=== PATIENT | male | born 1950 | race Caucasian/White ===

== ENCOUNTER 2025-01-20 15:43 | Inpatient (IN) | payer MEDICARE, OTHER ==
[~2025-01-20] VITALS: Ht 180.3 cm; Wt 78.0 kg
[~2025-01-20 15:43] MED LIST: AMLO5TAB16 PO; CARV25TA2 PO; ERGO500056 PO; PRAV80TA3 PO; ZOLP-679 PO
[2025-01-20 16:11] LABS: BASOPHILS % (AUTO) 1.3 % (0-1); EOSINOPHILS # (AUTO) 0.2 X10'3 (0-0.9); EOSINOPHILS % (AUTO) 5.9 % (0-6); LYMPHOCYTES # (AUTO) 0.9 X10'3 (1.1-4.8); LYMPHOCYTES % (AUTO) 25.7 % (21-51); MEAN CORPUSCULAR HEMOGLOBIN 28.6 PG (27.0-31.0); MEAN CORPUSCULAR HGB CONC 33.2 g/dL (33.0-36.5); MEAN CORPUSCULAR VOLUME 86.1 FL (78-98); MEAN PLATELET VOLUME 6.3 FL (7.4-10.4); MONOCYTES # (AUTO) 0.3 X10'3 (0-0.9); MONOCYTES % (AUTO) 9.5 % (2-12); NEUTROPHILS % (AUTO) 57.6 % (42-75); PLATELET COUNT 244 X10'3 (140-440); RED BLOOD COUNT 2.07 X10'6 (4.70-6.10); RED CELL DISTRIBUTION WIDTH 22.5 % (11.5-14.5); WHITE BLOOD COUNT 3.5 X10'3 (4.5-11.0)
[2025-01-20 16:14] LABS: HEMOGLOBIN 5.9 g/dl (14.0-17.9)
[2025-01-20 16:15] LABS: HEMATOCRIT 17.8 % (42.0-52.0)
[2025-01-20 16:21] LABS: APTT 27 SECONDS (22-32); INR 1.1 INR
[2025-01-20 16:22] LABS: ALBUMIN 2.6 G/DL (3.4-5.0); ALBUMIN/GLOBULIN RATIO 0.7 (1.1-1.5); ANION GAP 5 (8-16); ASPARTATE AMINO TRANSFERASE 9 U/L (10-37); BILIRUBIN,TOTAL 0.4 MG/DL (0.1-1.0); BLOOD UREA NITROGEN 37 MG/DL (7-18); BUN/CREATININE RATIO 8.3 (10.0-20.0); CALCIUM 7.9 MG/DL (8.5-10.1); CHLORIDE 98 MMOL/L (99-107); CREATININE 4.46 MG/DL (0.60-1.10); GLUCOSE 146 MG/DL (70-104); POTASSIUM 4.1 MMOL/L (3.5-5.1); SODIUM 139 MMOL/L (135-145); TOTAL CARBON DIOXIDE 36.3 MMOL/L (24-32); TOTAL PROTEIN 6.4 G/DL (6.4-8.2); eCRCL 15 ML/MIN; eGFR 13 ML/MIN
[2025-01-20 16:23] LABS: ALANINE AMINOTRANSFERASE 11 U/L (12-78); ALKALINE PHOSPHATASE 67 IU/L (46-116)
[2025-01-20 16:30] LABS: PRO BRAIN NATRIURETIC PEPTIDE 10433 PG/ML (0-125)
[2025-01-20 16:32] LABS: PROTHROMBIN TIME 11.1 SECONDS (9.0-12.0)
[2025-01-20 16:46] LABS: ANISOCYTOSIS 3+; PLATELET ESTIMATE NORMAL; TOTAL CELLS COUNTED 100
[2025-01-20 16:47] LABS: ELLIPTOCYTES FEW; STOMATOCYTES 1+; TEAR DROP CELLS FEW
[2025-01-20] MEDS ORDERED: magnesium Cl slow-release 64mg tablet PO PRN (16:50)
[2025-01-20] MEDS ORDERED: potassium Cl 20 mEq SR tablet PO PRN ×2 (16:50)
[2025-01-20] MEDS ORDERED: magnesium hydroxide 30ml (MOM) UD suspension PO PRN (16:50)
[2025-01-20] MEDS ORDERED: magnesium sulf-water 4G/100mL 100 ML IV PRN (16:50)
[2025-01-20] MEDS ORDERED: pantoprazole 40mg IV 80 MG in normal saline 100ml IV soln 100 ML IV ONE (16:50)
[2025-01-20] MEDS ORDERED: magnesium sulf-water 2g/50mL 50 ML IV PRN (16:50)
[2025-01-20] MEDS ORDERED: acetaminophen 325mg tablet PO PRN (16:50)
[2025-01-20] MEDS ORDERED: potassium Cl 40MEQ/1/2NS 520ml 520 ML IV PRN (16:50)
[2025-01-20] MEDS ORDERED: mag hydrox/Alum hydrox/simeth 30ml oral suspension PO PRN (16:50)
[2025-01-20] MEDS ORDERED: ondansetron/PF 4mg/2ml inj IV PRN (16:50)
[2025-01-20 17:27] LABS: HEMOGLOBIN A1C 4.4 % (4.5-6.2)
[2025-01-20] MEDS: pantoprazole 40 MG vial IV ONE (18:53)
[2025-01-20] MEDS: furosemide 10 MG/1 ML 10ml inj IV ONE (18:54)
[2025-01-20] MEDS: docusate sod 100mg capsule PO SCH (20:00)
[2025-01-20] MEDS ORDERED: heparin, porcine 5000 units/ml vial SQ SCH (20:00)
[2025-01-20] MEDS: K and/or MAG REPLACEMENT MC SCH (20:00)
[2025-01-20 20:25] LABS: BILIRUBIN,URINE NEGATIVE (Neg); CLARITY,URINE CLOUDY (Clear); COLOR,URINE YELLOW (Yellow); GLUCOSE, URINE 250 mg/dl (Neg); KETONES,URINE NEGATIVE (Neg); LEUKOCYTE ESTERASE ,URINE NEGATIVE (Neg); NITRITES, URINE NEGATIVE (Neg); OCCULT BLOOD,URINE NEGATIVE (Neg); PH,URINE 8.5 (4.8-8.0); PROTEIN,URINE 100 mg/dl (Neg); UROBILINOGEN,URINE 0.2 E.U/dL (0.2-1.0)
[2025-01-20] MEDS: PEG 3350/Na sulf,bicarb,Cl/KCl oral sol 4 liter bottle PO ONE (20:30)
[2025-01-20 20:35] LABS: UA COLLECTION TYPE URINAL
[2025-01-20 20:37] LABS: RBC,URINE NONE SEEN /HPF (0-2)
[2025-01-20 20:38] LABS: AMORPHOUS PHOSPHATES 1+; BACTERIA,URINE 1+ /HPF (Neg); SQUAMOUS EPITHELIAL CELL,UR FEW /LPF (FEW)
[2025-01-20] MEDS: furosemide 40mg/4ml inj IV ONE (20:44)
[2025-01-20] MEDS ORDERED: pantoprazole 40MG/NS 100ML BAG 100 ML IV SCH (21:00)
[2025-01-20 21:24] VITALS: BP 144/66; PULSE 72; RESP 15; TEMP 96.6; O2SAT 99
[2025-01-20 22:45] VITALS: BP 134/56; PULSE 67; RESP 16; TEMP 98.2; O2SAT 98
[2025-01-20] MEDS: carVEDilol 12.5mg tablet PO SCH (22:51)
[2025-01-21] VITALS (10 sets, daily range): BP systolic 112–172; BP diastolic 48–77; PULSE 57–72; RESP 12–16; TEMP 97.3–97.7; O2SAT 96–100
[2025-01-21 00:04] LABS: HEMATOCRIT 23.5 % (42.0-52.0); HEMOGLOBIN 8.2 g/dl (14.0-17.9); MEAN CORPUSCULAR HEMOGLOBIN 29.5 PG (27.0-31.0); MEAN CORPUSCULAR HGB CONC 34.8 g/dL (33.0-36.5); MEAN CORPUSCULAR VOLUME 84.6 FL (78-98); MEAN PLATELET VOLUME 6.4 FL (7.4-10.4); PLATELET COUNT 224 X10'3 (140-440); RED BLOOD COUNT 2.77 X10'6 (4.70-6.10); RED CELL DISTRIBUTION WIDTH 20.6 % (11.5-14.5); WHITE BLOOD COUNT 4.6 X10'3 (4.5-11.0)
[2025-01-21 02:37] LABS: BASOPHILS # (AUTO) 0.1 X10'3 (0-0.2); BASOPHILS % (AUTO) 1.1 % (0-1); EOSINOPHILS # (AUTO) 0.2 X10'3 (0-0.9); EOSINOPHILS % (AUTO) 4.6 % (0-6); HEMATOCRIT 24.4 % (42.0-52.0); HEMOGLOBIN 8.4 g/dl (14.0-17.9); LYMPHOCYTES % (AUTO) 18.5 % (21-51); MEAN CORPUSCULAR HEMOGLOBIN 29.2 PG (27.0-31.0); MEAN CORPUSCULAR HGB CONC 34.3 g/dL (33.0-36.5); MEAN CORPUSCULAR VOLUME 85.1 FL (78-98); MEAN PLATELET VOLUME 6.4 FL (7.4-10.4); MONOCYTES # (AUTO) 0.6 X10'3 (0-0.9); MONOCYTES % (AUTO) 10.3 % (2-12); NEUTROPHILS # (AUTO) 3.5 X10'3 (1.8-7.7); NEUTROPHILS % (AUTO) 65.5 % (42-75); PLATELET COUNT 249 X10'3 (140-440); RED BLOOD COUNT 2.87 X10'6 (4.70-6.10); RED CELL DISTRIBUTION WIDTH 20.2 % (11.5-14.5); WHITE BLOOD COUNT 5.4 X10'3 (4.5-11.0)
[2025-01-21 02:47] LABS: ALANINE AMINOTRANSFERASE 14 U/L (12-78); ALBUMIN 2.8 G/DL (3.4-5.0); ALBUMIN/GLOBULIN RATIO 0.7 (1.1-1.5); ALKALINE PHOSPHATASE 78 IU/L (46-116); ANION GAP 7 (8-16); ASPARTATE AMINO TRANSFERASE 10 U/L (10-37); BILIRUBIN,TOTAL 0.8 MG/DL (0.1-1.0); BLOOD UREA NITROGEN 39 MG/DL (7-18); BUN/CREATININE RATIO 7.3 (10.0-20.0); CALCIUM 8.4 MG/DL (8.5-10.1); CHLORIDE 102 MMOL/L (99-107); CHOL/HDL RATIO 2.4 (0.00-4.99); CHOLESTEROL 117 MG/DL (0-200); CREATININE 5.32 MG/DL (0.60-1.10); GLUCOSE 110 MG/DL (70-104); HDL CHOLESTEROL 49 MG/DL (35-60); LDL CHOLESTEROL 53 MG/DL (50-100); MAGNESIUM 2.3 MG/DL (1.5-2.4); SODIUM 142 MMOL/L (135-145); TOTAL CARBON DIOXIDE 33.4 MMOL/L (24-32); TRIGLYCERIDES 63 MG/DL (20-135); eCRCL 13 ML/MIN; eGFR 11 ML/MIN
[2025-01-21 06:23] LABS: HEMATOCRIT 22.3 % (42.0-52.0); HEMOGLOBIN 7.7 g/dl (14.0-17.9); MEAN CORPUSCULAR HEMOGLOBIN 29.2 PG (27.0-31.0); MEAN CORPUSCULAR HGB CONC 34.5 g/dL (33.0-36.5); MEAN CORPUSCULAR VOLUME 84.6 FL (78-98); MEAN PLATELET VOLUME 6.5 FL (7.4-10.4); PLATELET COUNT 227 X10'3 (140-440); RED BLOOD COUNT 2.64 X10'6 (4.70-6.10); RED CELL DISTRIBUTION WIDTH 20.3 % (11.5-14.5); WHITE BLOOD COUNT 4.7 X10'3 (4.5-11.0)
[2025-01-21] MEDS ORDERED: fentaNYL/PF 50MCG/1 ML 2ML syringe ONE (10:58)
[2025-01-21] MEDS ORDERED: MIDAZolam 1 MG/ML 5ML VIAL ONE (10:58)
[2025-01-21] MEDS ORDERED: simethicone 40mg/0.6ml oral drops 30ml ONE (11:06)
[2025-01-21] MEDS: pravastatin 40mg tablet PO SCH (12:59)
[2025-01-21] MEDS: amLODIPine 5mg tablet PO SCH (12:59)
[2025-01-21 13:05] LABS: HEMATOCRIT 24.2 % (42.0-52.0); HEMOGLOBIN 8.1 g/dl (14.0-17.9); MEAN CORPUSCULAR HEMOGLOBIN 28.7 PG (27.0-31.0); MEAN CORPUSCULAR HGB CONC 33.4 g/dL (33.0-36.5); MEAN PLATELET VOLUME 6.6 FL (7.4-10.4); PLATELET COUNT 235 X10'3 (140-440); RED BLOOD COUNT 2.81 X10'6 (4.70-6.10); RED CELL DISTRIBUTION WIDTH 20.6 % (11.5-14.5); WHITE BLOOD COUNT 4.3 X10'3 (4.5-11.0)
[2025-01-21 17:32] LABS: HEMATOCRIT 24.2 % (42.0-52.0); HEMOGLOBIN 8.2 g/dl (14.0-17.9); MEAN CORPUSCULAR HEMOGLOBIN 28.8 PG (27.0-31.0); MEAN CORPUSCULAR HGB CONC 33.8 g/dL (33.0-36.5); MEAN CORPUSCULAR VOLUME 85.4 FL (78-98); MEAN PLATELET VOLUME 6.5 FL (7.4-10.4); PLATELET COUNT 232 X10'3 (140-440); RED BLOOD COUNT 2.83 X10'6 (4.70-6.10); RED CELL DISTRIBUTION WIDTH 20.5 % (11.5-14.5); WHITE BLOOD COUNT 4.7 X10'3 (4.5-11.0)
[2025-01-21 20:46] LABS: HEMATOCRIT 22.2 % (42.0-52.0); HEMOGLOBIN 7.4 g/dl (14.0-17.9); MEAN CORPUSCULAR HEMOGLOBIN 28.4 PG (27.0-31.0); MEAN CORPUSCULAR HGB CONC 33.3 g/dL (33.0-36.5); MEAN CORPUSCULAR VOLUME 85.4 FL (78-98); MEAN PLATELET VOLUME 6.4 FL (7.4-10.4); PLATELET COUNT 228 X10'3 (140-440); RED CELL DISTRIBUTION WIDTH 20.6 % (11.5-14.5); WHITE BLOOD COUNT 4.6 X10'3 (4.5-11.0)
[2025-01-21 23:01] LABS: HEMOGLOBIN 7.2 g/dl (14.0-17.9); MEAN CORPUSCULAR HEMOGLOBIN 28.3 PG (27.0-31.0); MEAN CORPUSCULAR HGB CONC 33.1 g/dL (33.0-36.5); MEAN CORPUSCULAR VOLUME 85.6 FL (78-98); MEAN PLATELET VOLUME 6.5 FL (7.4-10.4); PLATELET COUNT 233 X10'3 (140-440); RED BLOOD COUNT 2.55 X10'6 (4.70-6.10); RED CELL DISTRIBUTION WIDTH 20.8 % (11.5-14.5); WHITE BLOOD COUNT 4.6 X10'3 (4.5-11.0)
[2025-01-21 23:02] LABS: HEMATOCRIT 21.8 % (42.0-52.0)
[2025-01-22] VITALS (15 sets, daily range): BP systolic 108–148; BP diastolic 48–68; PULSE 56–78; RESP 15–28; TEMP 97.5–98.6; O2SAT 96–98
[2025-01-22 06:39] LABS: BASOPHILS # (AUTO) 0.1 X10'3 (0-0.2); BASOPHILS % (AUTO) 1.2 % (0-1); EOSINOPHILS # (AUTO) 0.2 X10'3 (0-0.9); EOSINOPHILS % (AUTO) 3.4 % (0-6); HEMATOCRIT 22.6 % (42.0-52.0); HEMOGLOBIN 7.3 g/dl (14.0-17.9); LYMPHOCYTES # (AUTO) 1.9 X10'3 (1.1-4.8); LYMPHOCYTES % (AUTO) 32.9 % (21-51); MEAN CORPUSCULAR HGB CONC 32.3 g/dL (33.0-36.5); MEAN CORPUSCULAR VOLUME 86.6 FL (78-98); MEAN PLATELET VOLUME 6.9 FL (7.4-10.4); MONOCYTES # (AUTO) 0.6 X10'3 (0-0.9); MONOCYTES % (AUTO) 10.6 % (2-12); NEUTROPHILS # (AUTO) 2.9 X10'3 (1.8-7.7); NEUTROPHILS % (AUTO) 51.9 % (42-75); PLATELET COUNT 242 X10'3 (140-440); RED BLOOD COUNT 2.61 X10'6 (4.70-6.10); RED CELL DISTRIBUTION WIDTH 20.6 % (11.5-14.5); WHITE BLOOD COUNT 5.7 X10'3 (4.5-11.0)
[2025-01-22 07:22] LABS: ALANINE AMINOTRANSFERASE 8 U/L (12-78); ALBUMIN 2.4 G/DL (3.4-5.0); ALBUMIN/GLOBULIN RATIO 0.6 (1.1-1.5); ALKALINE PHOSPHATASE 65 IU/L (46-116); ANION GAP 9 (8-16); ASPARTATE AMINO TRANSFERASE 11 U/L (10-37); BILIRUBIN,TOTAL 0.5 MG/DL (0.1-1.0); BLOOD UREA NITROGEN 43 MG/DL (7-18); BUN/CREATININE RATIO 6.8 (10.0-20.0); CALCIUM 8.5 MG/DL (8.5-10.1); CHLORIDE 102 MMOL/L (99-107); CREATININE 6.36 MG/DL (0.60-1.10); GLUCOSE 85 MG/DL (70-104); MAGNESIUM 2.4 MG/DL (1.5-2.4); POTASSIUM 5.4 MMOL/L (3.5-5.1); SODIUM 141 MMOL/L (135-145); TOTAL PROTEIN 6.1 G/DL (6.4-8.2); eCRCL 11 ML/MIN; eGFR 9 ML/MIN
[2025-01-22] MEDS ORDERED: ASPI-1265 PO (09:42)
[2025-01-22] MEDS ORDERED: PHO667C PO (09:42)
[2025-01-22] MEDS ORDERED: SODI10PO PO (09:42)
[2025-01-22] MEDS ORDERED: SACU1TAB PO (09:42)
[2025-01-22] MEDS ORDERED: DULO-31 PO (09:42)
[2025-01-22] MEDS ORDERED: PER5325T PO (09:42)
[2025-01-22] MEDS ORDERED: TAMS-55 PO (09:42)
[2025-01-22] MEDS ORDERED: AMI200T PO (09:42)
[2025-01-22] MEDS ORDERED: RIVA15TA PO (09:42)
[2025-01-22] MEDS ORDERED: albumin (human) 25% 100ml IV 100 ML IV PRN (10:05)
[2025-01-22] MEDS: EPOETIN ALFA-EPBX 20,000 UNIT/ML 1 ML MDV IV ONE (12:18)
[2025-01-22 12:31] LABS: FERRITIN 391 NG/ML (26-388)
[2025-01-22 12:52] LABS: % IRON SATURATION 16 % (11-46); IRON 24 UG/DL (53-167); TOTAL IRON BINDING CAPACITY 152 UG/DL (259-388)
[2025-01-22 18:40] LABS: HEMATOCRIT 25.4 % (42.0-52.0); HEMOGLOBIN 8.3 g/dl (14.0-17.9); MEAN CORPUSCULAR HEMOGLOBIN 28.5 PG (27.0-31.0); MEAN CORPUSCULAR HGB CONC 32.8 g/dL (33.0-36.5); MEAN CORPUSCULAR VOLUME 86.9 FL (78-98); MEAN PLATELET VOLUME 6.4 FL (7.4-10.4); PLATELET COUNT 244 X10'3 (140-440); RED BLOOD COUNT 2.92 X10'6 (4.70-6.10); RED CELL DISTRIBUTION WIDTH 20.8 % (11.5-14.5); WHITE BLOOD COUNT 4.5 X10'3 (4.5-11.0)
[2025-01-22] MEDS: carVEDilol 12.5mg tablet PO SCH (19:46)
[2025-01-22] MEDS: sacubitril/valsartan 24mg-26mg tablet PO SCH (19:47)
[2025-01-22] MEDS ORDERED: non-formulary drug (Zolpidem Tartrate (Ambien) 1 TAB) PO SCH (21:00)
[2025-01-22] MEDS: temazepam 15mg capsule PO PRN (22:07)
[2025-01-23] VITALS (11 sets, daily range): BP systolic 106–136; BP diastolic 50–67; PULSE 55–67; RESP 16–20; TEMP 97.5–98; O2SAT 95–98
[2025-01-23 07:04] LABS: HEMATOCRIT 24.2 % (42.0-52.0); HEMOGLOBIN 7.8 g/dl (14.0-17.9); MEAN CORPUSCULAR HEMOGLOBIN 28.3 PG (27.0-31.0); MEAN CORPUSCULAR HGB CONC 32.5 g/dL (33.0-36.5); MEAN CORPUSCULAR VOLUME 87.1 FL (78-98); MEAN PLATELET VOLUME 6.6 FL (7.4-10.4); PLATELET COUNT 246 X10'3 (140-440); RED BLOOD COUNT 2.77 X10'6 (4.70-6.10); RED CELL DISTRIBUTION WIDTH 20.6 % (11.5-14.5); WHITE BLOOD COUNT 5.2 X10'3 (4.5-11.0)
[2025-01-23 07:05] LABS: BASOPHILS # (AUTO) 0.1 X10'3 (0-0.2); EOSINOPHILS # (AUTO) 0.2 X10'3 (0-0.9); EOSINOPHILS % (AUTO) 3.8 % (0-6); HEMATOCRIT 23.8 % (42.0-52.0); HEMOGLOBIN 7.8 g/dl (14.0-17.9); LYMPHOCYTES # (AUTO) 1.5 X10'3 (1.1-4.8); LYMPHOCYTES % (AUTO) 29.8 % (21-51); MEAN CORPUSCULAR HEMOGLOBIN 28.5 PG (27.0-31.0); MEAN CORPUSCULAR HGB CONC 32.7 g/dL (33.0-36.5); MEAN CORPUSCULAR VOLUME 87.3 FL (78-98); MEAN PLATELET VOLUME 6.7 FL (7.4-10.4); MONOCYTES # (AUTO) 0.6 X10'3 (0-0.9); NEUTROPHILS # (AUTO) 2.8 X10'3 (1.8-7.7); NEUTROPHILS % (AUTO) 53.4 % (42-75); PLATELET COUNT 250 X10'3 (140-440); RED BLOOD COUNT 2.73 X10'6 (4.70-6.10); RED CELL DISTRIBUTION WIDTH 20.3 % (11.5-14.5); WHITE BLOOD COUNT 5.2 X10'3 (4.5-11.0)
[2025-01-23] MEDS ORDERED: normal saline 1000ml 100 ML IV PRN (07:25)
[2025-01-23] MEDS ORDERED: albumin (human) 25% 100ml IV 100 ML IV PRN (07:25)
[2025-01-23 07:41] LABS: ANION GAP 10 (8-16); BLOOD UREA NITROGEN 24 MG/DL (7-18); CHLORIDE 104 MMOL/L (99-107); CREATININE 4.46 MG/DL (0.60-1.10); GLUCOSE 84 MG/DL (70-104); POTASSIUM 4.7 MMOL/L (3.5-5.1); SODIUM 142 MMOL/L (135-145); TOTAL CARBON DIOXIDE 28.2 MMOL/L (24-32)
[2025-01-23 07:42] LABS: ALANINE AMINOTRANSFERASE 9 U/L (12-78); ALBUMIN 2.4 G/DL (3.4-5.0); ALBUMIN/GLOBULIN RATIO 0.6 (1.1-1.5); ALKALINE PHOSPHATASE 62 IU/L (46-116); ASPARTATE AMINO TRANSFERASE 7 U/L (10-37); BILIRUBIN,TOTAL 0.4 MG/DL (0.1-1.0); BUN/CREATININE RATIO 5.4 (10.0-20.0); CALCIUM 8.4 MG/DL (8.5-10.1); MAGNESIUM 2.1 MG/DL (1.5-2.4); TOTAL PROTEIN 6.3 G/DL (6.4-8.2); eCRCL 15 ML/MIN; eGFR 13 ML/MIN
[2025-01-23] MEDS ORDERED: FERR324T4 PO (08:22)
[2025-01-23] MEDS: tamsulosin 0.4mg capsule PO SCH (08:24)
[2025-01-23] MEDS: duloxetine 30mg CAPSULE.DR PO SCH (08:24)
[2025-01-23] MEDS: EPOETIN ALFA-EPBX 20,000 UNIT/ML 1 ML MDV IV ONE (11:38)
[2025-01-24 07:11] LABS: HBSAG SCREEN Negative (Negative)
== END 2025-01-23 14:11 | disposition home or self-care (01) | DRG 393 ==
LOC: ER 15:44 → ED HOLD 16:51 → PCU 3S 21:29
PROVIDERS: ADMIT Family Medicine; ATTEND Family Medicine
PROC: 30233N1 Transfusion of Nonautologous Red Blood Cells into Peripheral Vein, Percutaneous Approach (ICD-10-PCS; 2025-01-20)
PROC: 0DBL8ZZ Excision of Transverse Colon, Via Natural or Artificial Opening Endoscopic (ICD-10-PCS; principal; 2025-01-21)
PROC: 0W3P8ZZ Control Bleeding in Gastrointestinal Tract, Via Natural or Artificial Opening Endoscopic (ICD-10-PCS; 2025-01-21)
PROC: 5A1D70Z Performance of Urinary Filtration, Intermittent, Less than 6 Hours Per Day (ICD-10-PCS; 2025-01-22)
PROC: 5A1D70Z Performance of Urinary Filtration, Intermittent, Less than 6 Hours Per Day (ICD-10-PCS; 2025-01-23)
DX: K62.7 Radiation proctitis (principal); I50.23 Acute on chronic systolic (congestive) heart failure; N17.0 Acute kidney failure with tubular necrosis; N18.6 End stage renal disease; I13.2 Hypertensive heart and chronic kidney disease with heart failure and with stage 5 chronic kidney disease, or end stage renal disease; D62 Acute posthemorrhagic anemia; I70.8 Atherosclerosis of other arteries; D12.3 Benign neoplasm of transverse colon; K57.30 Diverticulosis of large intestine without perforation or abscess without bleeding; F32.A Depression, unspecified; E11.51 Type 2 diabetes mellitus with diabetic peripheral angiopathy without gangrene; E87.5 Hyperkalemia; I25.10 Atherosclerotic heart disease of native coronary artery without angina pectoris; K55.20 Angiodysplasia of colon without hemorrhage; Z96.641 Presence of right artificial hip joint; Z95.1 Presence of aortocoronary bypass graft; Z85.46 Personal history of malignant neoplasm of prostate; Z79.899 Other long term (current) drug therapy; Z92.3 Personal history of irradiation; Z91.158 Patient's noncompliance with renal dialysis for other reason; Z99.2 Dependence on renal dialysis
CPT/HCPCS: 36415; 36430; 45382; 45385; 45388; 71045; 80053; 80061; 81001; 82570; 82728; 83036; 83540; 83550; 83735; 83880; 83935; 84300; 84484; 85007; 85025; 85027; 85610; 85730; 86885; 86900; 86901; 86920; 87081; 87088; 87207; 87340; 93005; 93306; 97110; 97116; 97162; 99152; 99153; 99285; A4620; A6449; C1889; E1594; G0257; G0378; J1938; J2250; J2470; J3010; J7030; J7040; P9016; Q4081